=== PATIENT | female | born 1955 | race Hispanic/Latino ===

== ENCOUNTER → 2017-11-29 | Day surgery (SDC) | payer OTHER ==
[~2017-11-29] MED LIST: ATORVASTATIN CA10 MG PO; HYOSCYAMINE SULFATE 0.5 MG/ML AMP ONE; MELOXICAM15 MG PO; MIDAZOLAM HCL 2 MG/2 ML VIAL ONE; PROPOFOL IV EMULSION 10 MG/ML 50 ML VIAL ONE
[2017-11-29 11:20] VITALS: BP 118/88
== END | disposition home or self-care (01) ==
LOC: OR 07:09
PROVIDERS: ATTEND Internal Medicine Gastroenterology
DX: Z12.11 Encounter for screening for malignant neoplasm of colon (principal); K56.690 Other partial intestinal obstruction; K57.30 Diverticulosis of large intestine without perforation or abscess without bleeding; K64.8 Other hemorrhoids; K21.9 Gastro-esophageal reflux disease without esophagitis; E78.00 Pure hypercholesterolemia, unspecified; K59.00 Constipation, unspecified; R03.0 Elevated blood-pressure reading, without diagnosis of hypertension; E66.01 Morbid (severe) obesity due to excess calories; I49.9 Cardiac arrhythmia, unspecified; F41.9 Anxiety disorder, unspecified; Z01.810 Encounter for preprocedural cardiovascular examination; Z68.43 Body mass index [BMI] 50.0-59.9, adult
CPT/HCPCS: 45378; 93005; J1980; J2250